=== PATIENT | female | born 1945 | race Caucasian/White ===

== ENCOUNTER → 2016-10-08 | Outpatient (CLI) | payer MEDICARE, BC | LOC: MW.CHIM 08:00 | PROVIDERS: ATTEND Internal Medicine | DX: I25.10 Atherosclerotic heart disease of native coronary artery without angina pectoris (principal); R55 Syncope and collapse; I73.9 Peripheral vascular disease, unspecified; I49.3 Ventricular premature depolarization; F17.210 Nicotine dependence, cigarettes, uncomplicated; Z71.6 Tobacco abuse counseling | CPT/HCPCS: 99214; 99407 ==

== ENCOUNTER → 2016-10-18 | Outpatient (CLI) | payer MEDICARE, BC ==
--- NOTE | 2016-10-18 08:36 | PCM.PRNOTE ---
- Free Text/Narrative Note: Exercise MIBI Indication CP Sestamibi Tc99 25 MCi was given at the peak HR Patient was brought to the stress test lab in postabsorptive state verbal and paper consent was obtained from patient Vital signs at resting state blood pressure of 120/78 with a heart rate of 74 EKG shows sinus rhythm, ST abnormalities V3-V6, Q wave II III aVF Maximal heart rate of 159 and target heart rate is 128 Patient reached the target heart rate, completed stage III Deacon protocol Peak blood pressure is 142/84 Total exercise time of 6.50minutes No further ST changes with a peak heart rate. There was PAT with HR 120-130, and PVCx, with couplets during peak exercise. Those spontaneously resolved. METS 10.1 Patient felt SOB, with left leg pain, and spontaneously resolved Impression Normal hemodynamics, normal chronotropic, excellent exercise capacity, negative for ischemia on EKG Plan Nuclear portion pending
--- NOTE | 2016-10-18 15:01 | NM ---
EXAMINATION: Nuclear medicine myocardial perfusion study with exercise stress test. HISTORY: Heart disease. PROCEDURE: Patient exercised according to Deacon protocol for 6 minutes and 50 seconds and achieved maximal hear t rate of 159 beats per minute. Adequate exercise. Following intravenous administration of 27 mCi of technetium 99m sestamibi, stress and rest SPECT i mages including gating imaging was performed. FINDINGS: Stress and rest myocardial SPECT images demonstrates a large area of mildly decreased perfusion jeanine g the lateral wall extending to the apex. There is also a moderate area of moderately decreased perf usion along the inferior wall most prominent at the base. Review of gated images demonstrates mild hypokinesis along the inferior wall. The chamber size is no rmal. The left ventricular ejection fraction is 55 %. IMPRESSION: 1. Decreased perfusion along the inferior wall and less so the lateral wall. Correlation with rest i maging is recommended. 2. Normal ventricular chamber size with ejection fraction of 55 %.
== END ==
LOC: MW.NM 09:00
PROVIDERS: ATTEND Internal Medicine
DX: I25.10 Atherosclerotic heart disease of native coronary artery without angina pectoris (principal)
CPT/HCPCS: 78451; 93017; A9500

== ENCOUNTER → 2016-10-19 | Outpatient (CLI) | payer MEDICARE, BC ==
--- NOTE | 2016-10-19 13:34 | NM ---
EXAMINATION: Nuclear medicine myocardial perfusion study with exercise stress test. HISTORY: Heart disease. PROCEDURE: Patient exercised according to Deacon protocol for 6 minutes and 50 seconds and achieved maximal heart rate of 159 beats per minute. Adequate exercise. Following intravenous administration of 27 mCi of technetium 99m sestamibi, stress and rest SPECT images including gating imaging was performed. FINDINGS: Stress and rest myocardial SPECT images demonstrates a large area of mildly decreased perfusion along the lateral wall extending to the apex. There is also a moderate area of moderately decreased perfusion along the inferior wall most prominent at the base. Review of gated images demonstrates mild hypokinesis along the inferior wall. The chamber size is normal. The left ventricular ejection fraction is 55 %. IMPRESSION: 1. Decreased perfusion along the inferior wall and less so the lateral wall. Correlation with rest imaging is recommended. 2. Normal ventricular chamber size with ejection fraction of 55 %. Dictated by: Kishore Carrillo MD <Electronically signed by Kishore Carrillo MD in [facility]> 10/18/16 at 1459 , 1456 , 1456 Doc Number: [id number] Copies To: Shani Crespo MD; PCP,None~ ADDENDUM: Additional images were obtained at rest following the administration of 26.2 mCi of technetium 99m labeled sestamibi. FINDINGS/IMPRESSION: The perfusion pattern at rest appear similar to the stress study. The defect along the inferior wall towards the base persists. No definite evidence of myocardial ischemia. The ejection fraction however at rest is 66% compared to 56 % during stress. Wall motion appears similar with mild hypokinesis along the inferior wall. ANGELIA
== END ==
LOC: MW.NM 09:52
PROVIDERS: ATTEND Internal Medicine
DX: I25.10 Atherosclerotic heart disease of native coronary artery without angina pectoris (principal)
CPT/HCPCS: 78451; 78451-26; 78452; 78452-26; A9500

== ENCOUNTER → 2016-10-29 | Outpatient (CLI) | payer MEDICARE, BC | LOC: MW.CHIM 16:27 | PROVIDERS: ATTEND Internal Medicine | DX: I10 Essential (primary) hypertension (principal); I49.3 Ventricular premature depolarization; I73.9 Peripheral vascular disease, unspecified; I25.10 Atherosclerotic heart disease of native coronary artery without angina pectoris; F17.210 Nicotine dependence, cigarettes, uncomplicated; Z71.6 Tobacco abuse counseling | CPT/HCPCS: 36415; 84439; 84443; 84481; 99214; 99407 ==